=== PATIENT | male | born 1965 | race Caucasian/White ===

== ENCOUNTER 2016-06-27 11:06 | Inpatient (IN) | payer SELFPAY ==
[2016-06-27] VITALS (8 sets, daily range): BP systolic 117–137; BP diastolic 68–91; PULSE 77–98; RESP 15–18; TEMP 97.4–98.6; O2SAT 95–99
[~2016-06-27] VITALS: Ht 177.8 cm; Wt 107.0 kg
[~2016-06-27 11:06] MED LIST: CEPH500C3 PO; HYDR-3534 PO; IBUP800 PO; PERC5TAB12 PO
[2016-06-27] MEDS ORDERED: SODIUM CHLOR 0.9% 1000 ML INJ 1,000 ML IV SCH (11:23)
[2016-06-27] MEDS ORDERED: ONDANSETRON HCL 4 MG/2 ML VIAL IVP ONE (11:30)
[2016-06-27] MEDS ORDERED: SODIUM CHLOR 0.9% 1000 ML INJ 1,000 ML IV ONE (11:30)
[2016-06-27] MEDS ORDERED: KETOROLAC TROMETHAMINE 30 MG/ML (IVP) VIAL IV PUSH ONE (11:30)
[2016-06-27] MEDS ORDERED: SODIUM CHLORIDE 0.9% FLUSH 5 ML FLUSH IVF PRN (11:30)
[2016-06-27] MEDS ORDERED: MORPHINE SULFATE 4 MG/ML INJ IV PUSH ONE (11:30)
--- NOTE | 2016-06-27 11:30 | PD ---
HPI Chief Complaint: Flank/Kidney Pain Time Seen by Provider: 11:16 Travel History International Travel<30 days: No Contact w/Intl Traveler<30days: No Traveled to known affect area: No History of Present Illness HPI Patient is a 51-year-old male presents to the room with complaints of right sided flank pain. Patient reports that 3 weeks ago he began to feel intermittent pains to his right flank. Reports that over the past 3 weeks, his symptoms have progressed and worsened. Patient reports that symptoms were worse last night, reports that he has not been able to sleep with his symptoms. Reports that pain radiates to his groin. Patient reports that he has been feeling intermittent chills, denies fevers. Denies nausea or vomiting. Denies hematuria, urinary urgency, frequency or dysuria. Patient denies history of kidney stones in the past. PFSH Past Medical History Medical History: Denies Significant Hx Tetanus Vaccination: < 5 Years Influenza Vaccination: No Past Surgical History Surgical History: No Previous Surgery Social History Alcohol Use: Yes (drinks mult beers wednesday and wed) Tobacco Use: Yes (APPROX 2 PPD ) Substance Use: No Allergies-Medications (Allergen,Severity, Reaction): Coded Allergies: No Known Allergies (Verified , 06/27/16) Reported Meds & Prescriptions Reported Meds & Active Scripts Active No Active Prescriptions or Reported Medications Review of Systems General / Constitutional: No: Fever Eyes: No: Visual changes HENT: No: Headaches Cardiovascular: No: Chest Pain or Discomfort Respiratory: No: Shortness of Breath Gastrointestinal: Positive: Abdominal Pain, No: Nausea, Vomiting, Diarrhea Genitourinary: No: Urgency, Frequency, Dysuria, Nocturia, Hematuria Musculoskeletal: No: Pain Skin: No Rash Neurologic: No: Weakness Psychiatric: No: Depression Endocrine: No: Polydipsia Hematologic/Lymphatic: No: Easy Bruising Physical Exam Narrative GENERAL: Patient with mild distress SKIN: Warm and dry. HEAD: Atraumatic. Normocephalic. EYES: Pupils equal and round. No scleral icterus. No injection or drainage. ENT: No nasal bleeding or discharge. Mucous membranes pink and moist. NECK: Trachea midline. No JVD. CARDIOVASCULAR: Regular rate and rhythm. No murmur appreciated. RESPIRATORY: No accessory muscle use. Clear to auscultation. Breath sounds equal bilaterally. GASTROINTESTINAL: Abdomen soft, non-tender, nondistended. Patient with right- sided flank pain MUSCULOSKELETAL: No obvious deformities. No clubbing. No cyanosis. No edema. NEUROLOGICAL: Awake and alert. No obvious cranial nerve deficits. Motor grossly within normal limits. Normal speech. PSYCHIATRIC: Appropriate mood and affect; insight and judgment normal. Data Data Last Documented VS Vital Signs Date Time Temp Pulse Resp B/P Pulse Ox O2 Delivery O2 Flow Rate FiO2 06/27/16 12:25 85 18 124/82 99 Room Air 06/27/16 11:07 98.2 Orders Complete Blood Count With Diff (06/27/16 11:23) Comprehensive Metabolic Panel (06/27/16 11:23) Lipase (06/27/16 11:23) Prothrombin Time / Inr (Pt) (06/27/16 11:23) Act Partial Throm Time (Ptt) (06/27/16 11:23) Urinalysis - C+S If Indicated (06/27/16 11:23) Ct Abd/Pel W/O Iv Contrast (06/27/16 11:23) Morphine Inj (Morphine Inj) (06/27/16 11:30) Ondansetron Inj (Zofran Inj) (06/27/16 11:30) Sodium Chlor 0.9% 1000 Ml Inj (Ns 1000 M (06/27/16 11:23) Sodium Chloride 0.9% Flush (Ns Flush) (06/27/16 11:30) Sodium Chlor 0.9% 1000 Ml Inj (Ns 1000 M (06/27/16 11:30) Ketorolac Inj (Toradol Inj) (06/27/16 11:30) Piperacil-Tazo 3.375 Gm Premix (Zosyn 3. (06/27/16 12:15) Labs Laboratory Tests Test 06/27/16 11:25 White Blood Count 16.9 TH/MM3 Red Blood Count 4.82 MIL/MM3 Hemoglobin 16.1 GM/DL Hematocrit 46.1 % Mean Corpuscular Volume 95.5 FL Mean Corpuscular Hemoglobin 33.3 PG Mean Corpuscular Hemoglobin 34.9 % Concent Red Cell Distribution Width 14.2 % Platelet Count 243 TH/MM3 Mean Platelet Volume 7.3 FL Neutrophils (%) (Auto) 71.7 % Lymphocytes (%) (Auto) 17.6 % Monocytes (%) (Auto) 9.4 % Eosinophils (%) (Auto) 0.7 % Basophils (%) (Auto) 0.6 % Neutrophils # (Auto) 12.1 TH/MM3 Lymphocytes # (Auto) 3.0 TH/MM3 Monocytes # (Auto) 1.6 TH/MM3 Eosinophils # (Auto) 0.1 TH/MM3 Basophils # (Auto) 0.1 TH/MM3 CBC Comment DIFF FINAL Differential Comment Prothrombin Time 10.8 SEC Prothromb Time International 1.0 RATIO Ratio Activated Partial 32.2 SEC Thromboplast Time Sodium Level 139 MEQ/L Potassium Level 4.3 MEQ/L Chloride Level 106 MEQ/L Carbon Dioxide Level 25.4 MEQ/L Anion Gap 8 MEQ/L Blood Urea Nitrogen 11 MG/DL Creatinine 1.15 MG/DL Estimat Glomerular Filtration 68 ML/MIN Rate Random Glucose 102 MG/DL Calcium Level 8.8 MG/DL Total Bilirubin 0.7 MG/DL Aspartate Amino Transf 92 U/L (AST/SGOT) Alanine Aminotransferase 177 U/L (ALT/SGPT) Alkaline Phosphatase 89 U/L Total Protein 8.1 GM/DL Albumin 3.4 GM/DL Lipase 110 U/L MDM Medical Decision Making Medical Screen Exam Complete: Yes Emergency Medical Condition: Yes Interpretation(s) Vital Signs Date Time Temp Pulse Resp B/P Pulse Ox O2 Delivery O2 Flow Rate FiO2 06/27/16 11:20 88 18 125/78 98 Room Air 06/27/16 11:20 95 18 06/27/16 11:15 89 18 125/78 98 06/27/16 11:07 98.2 98 15 137/91 95 Last Impressions Abdomen/Pelvis CT 06/27/16 1123 Signed Impressions: Service Date/Time: Monday, June 27, 2016 11:44 - CONCLUSION: Acute appendicitis with findings characteristic of perforation and abscess formation. Nonobstructing left renal calculus. Diverticulosis. Natanael Crews MD Laboratory Tests Test 06/27/16 11:25 White Blood Count 16.9 TH/MM3 (4.0-11.0) Red Blood Count 4.82 MIL/MM3 (4.50-5.90) Hemoglobin 16.1 GM/DL (13.0-17.0) Hematocrit 46.1 % (39.0-51.0) Mean Corpuscular Volume 95.5 FL (80.0-100.0) Mean Corpuscular Hemoglobin 33.3 PG (27.0-34.0) Mean Corpuscular Hemoglobin 34.9 % Concent (32.0-36.0) Red Cell Distribution Width 14.2 % (11.6-17.2) Platelet Count 243 TH/MM3 (150-450) Mean Platelet Volume 7.3 FL (7.0-11.0) Neutrophils (%) (Auto) 71.7 % (16.0-70.0) Lymphocytes (%) (Auto) 17.6 % (9.0-44.0) Monocytes (%) (Auto) 9.4 % (0.0-8.0) Eosinophils (%) (Auto) 0.7 % (0.0-4.0) Basophils (%) (Auto) 0.6 % (0.0-2.0) Neutrophils # (Auto) 12.1 TH/MM3 (1.8-7.7) Lymphocytes # (Auto) 3.0 TH/MM3 (1.0-4.8) Monocytes # (Auto) 1.6 TH/MM3 (0-0.9) Eosinophils # (Auto) 0.1 TH/MM3 (0-0.4) Basophils # (Auto) 0.1 TH/MM3 (0-0.2) CBC Comment DIFF FINAL Differential Comment Prothrombin Time 10.8 SEC (9.8-11.6) Prothromb Time International 1.0 RATIO Ratio Activated Partial 32.2 SEC Thromboplast Time (24.3-30.1) Sodium Level 139 MEQ/L (136-145) Potassium Level 4.3 MEQ/L (3.5-5.1) Chloride Level 106 MEQ/L (98-107) Carbon Dioxide Level 25.4 MEQ/L (21.0-32.0) Anion Gap 8 MEQ/L (5-15) Blood Urea Nitrogen 11 MG/DL (7-18) Creatinine 1.15 MG/DL (0.60-1.30) Estimat Glomerular Filtration 68 ML/MIN (>89) Rate Random Glucose 102 MG/DL (74-106) Calcium Level 8.8 MG/DL (8.5-10.1) Total Bilirubin 0.7 MG/DL (0.2-1.0) Aspartate Amino Transf 92 U/L (15-37) (AST/SGOT) Alanine Aminotransferase 177 U/L (12-78) (ALT/SGPT) Alkaline Phosphatase 89 U/L (45-117) Total Protein 8.1 GM/DL (6.4-8.2) Albumin 3.4 GM/DL (3.4-5.0) Lipase 110 U/L (73-393) Differential Diagnosis Pyelonephritis, nephrolithiasis, cholecystitis, muscle skeletal pain Narrative Course 51-year-old male who presents to emergency room with complaints of right-sided flank pain. Patient reports that pain began 3 weeks ago and has been intermittent in nature. Patient reports that symptoms are progressing and getting worse, reports that pain now radiates to his right groin. Patient with no history of kidney stones in the past. Patient denies hematuria, dysuria, urgency or frequency. Patient with right-sided flank pain, patient with most likely a kidney stone versus pyelonephritis. Plan to obtain CAT scan of the abdomen pelvis without IV contrast for further evaluation of symptoms.. CBC, BMP, UA ordered to evaluate for renal function, infection. Plan to give patient IV fluids as well as pain medications and we'll reevaluate. pt with acute appy with perforation and abscess formation call made to Dr Ledezma - Dr. Ledezma request that pt be placed on medical service and to have IR consulted for drainage of abscess. He will see pt in consult but will not operate acutely with perforated appendix with abscess perforation Dr Ledezma evaluated pt in ER, plan for admission to medicine service and perc drain by IR, cont. antibiotics, plan for outpt appendectomy in a few weeks case reviewed with family practice resident who accepts pt to service Diagnosis Primary Impression: Acute appendicitis Qualified Code: K35.2 - Acute appendicitis with generalized peritonitis Admitting Information Admitting Physician Requests: Admit Scripts No Active Prescriptions or Reported Meds Colleen Romero DO Jun 27, 2016 11:30
[2016-06-27 11:35] LABS: AUTOMATED NEUTROPHIL # 12.1 TH/MM3 (1.8-7.7); BASOPHIL # 0.1 TH/MM3 (0-0.2); BASOPHIL % 0.6 % (0.0-2.0); EOSINOPHIL # 0.1 TH/MM3 (0-0.4); EOSINOPHIL % 0.7 % (0.0-4.0); HEMATOCRIT 46.1 % (39.0-51.0); HEMO FLAGS DIFF FINAL; LYMPH % 17.6 % (9.0-44.0); MEAN CELL VOLUME 95.5 FL (80.0-100.0); MEAN CORPUSCULAR HEMOGLOBIN 33.3 PG (27.0-34.0); MEAN CORPUSCULAR HGB CONC 34.9 % (32.0-36.0); MONO % 9.4 % (0.0-8.0); NEUT % 71.7 % (16.0-70.0); PLATELET COUNT 243 TH/MM3 (150-450); RED BLOOD COUNT 4.82 MIL/MM3 (4.50-5.90); RED CELL DISTRIBUTION WIDTH 14.2 % (11.6-17.2); WHITE BLOOD COUNT 16.9 TH/MM3 (4.0-11.0)
[2016-06-27 11:46] LABS: APTT (PATIENT) 32.2 SEC (24.3-30.1); PROTHROMBIN TIME - PATIENT 10.8 SEC (9.8-11.6)
[2016-06-27 11:53] LABS: ALT (GPT) 177 U/L (12-78); ANION GAP 8 MEQ/L (5-15); AST (GOT) 92 U/L (15-37); BICARBONATE 25.4 MEQ/L (21.0-32.0); BLOOD UREA NITROGEN 11 MG/DL (7-18); CHLORIDE 106 MEQ/L (98-107); GLOMERULAR FILTRATION RATE 68 ML/MIN (>89); POTASSIUM 4.3 MEQ/L (3.5-5.1); SODIUM (NA) 139 MEQ/L (136-145)
[2016-06-27 11:54] LABS: ALKALINE PHOSPHATASE 89 U/L (45-117); TOTAL BILIRUBIN ADULT 0.7 MG/DL (0.2-1.0)
--- NOTE | 2016-06-27 12:05 | RADRPT ---
EXAM DATE/TIME: 06/27/2016 11:44 [facility] COMPARISON: No previous studies available for comparison. INDICATIONS : Right flank pain. ORAL CONTRAST: No oral contrast ingested. RADIATION DOSE: 8.53 CTDIvol (mGy) MEDICAL HISTORY : None SURGICAL HISTORY : None. ENCOUNTER: Initial ACUITY: 1 day PAIN SCALE: 7/10 LOCATION: Right flank TECHNIQUE: Volumetric scanning of the abdomen and pelvis was performed. Using automated exposure control and ad justment of the mA and/or kV according to patient size, radiation dose was kept as low as reasonably achievable to obtain optimal diagnostic quality images. FINDINGS: Nonobstructing calculus left midpole kidney measuring 2 mm on image 56. Right kidney unremarkable. Sp amanda, pancreas, adrenal glands, visualized portions of the liver and gallbladder are unremarkable. Ur inary bladder unremarkable. Small fat containing left inguinal hernia also containing a loop of sigmo id colon. There is diverticulosis of the sigmoid colon and descending colon without evidence of diver ticulitis. Transverse and descending colonic diverticuli are also seen. The examination demonstrates a dilated fluid-filled appendix with adjacent inflammatory stranding and trace fluid. This terminates in a air and fluid collection measuring 4.8 x 3.6 cm in transverse and AP dimension. This collection abuts the descending colon where there is mild focal wall thickening present. Lung bases are clear. Osseous structures are intact with degenerative changes. CONCLUSION: Acute appendicitis with findings characteristic of perforation and abscess formation. Nonobstructing left renal calculus. Diverticulosis. Natanael Crews MD on June 27, 2016 at 12:00 Board Certified Radiologist. This report was verified electronically.
[2016-06-27] MEDS ORDERED: PIPERACIL-TAZO 3.375 GM PREMIX 50 ML IV ONE (12:15)
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
[2016-06-27] MEDS ORDERED: LORazepam 2 MG TAB PO PRN (14:15)
[2016-06-27] MEDS ORDERED: LORazepam 1 MG TAB PO PRN (14:15)
[2016-06-27] MEDS ORDERED: LORazepam 2 MG/ML VIAL IV PUSH PRN ×4 (14:15)
[2016-06-27] MEDS ORDERED: FLUMAZENIL 1 MG/10 ML VIAL IV PUSH PRN (14:15)
[2016-06-27] MEDS ORDERED: SODIUM CHLORIDE 0.9% FLUSH 5 ML FLUSH FLUSH PRN (14:15)
[2016-06-27] MEDS ORDERED: ACETAMINOPHEN 325 MG TAB PO PRN (14:15)
[2016-06-27] MEDS ORDERED: NALOXONE HCL 0.4 MG/ML AMP IV PRN (14:15)
[2016-06-27] MEDS ORDERED: ONDANSETRON HCL 4 MG/2 ML VIAL IVP PRN (14:15)
[2016-06-27] MEDS ORDERED: RESP: ALBUTEROL 2.5 MG/IPRATROPIUM 0.5 MG NEB (PRN) NEB (15:00)
[2016-06-27] MEDS ORDERED: hydrALAZINE HCL 10 MG TAB PO PRN (15:00)
--- NOTE | 2016-06-27 15:07 | RADRPT ---
EXAM DATE/TIME: 06/27/2016 14:50 [facility] COMPARISON: CT ABDOMEN & PELVIS W/O CONTRAST, June 27, 2016, 11:44. INDICATIONS : Patient has no chest complaints. MEDICAL HISTORY : None. SURGICAL HISTORY : None. ENCOUNTER: Initial ACUITY: 1 day PAIN SCORE: 0/10 LOCATION: chest FINDINGS: No infiltrate, effusion or pneumothorax demonstrated. Normal heart size. There is a calcified left queta ng granuloma. CONCLUSION: No evidence of acute cardiopulmonary disease. Kirby Brooks MD on June 27, 2016 at 15:05 Board Certified Radiologist. This report was verified electronically.
[2016-06-27 15:30] LABS: BLOOD, URINE TRACE (NEG); COMMENT (UR) CULT NOT INDICATED; CULTURE IF INDICATED CULT NOT INDICATED; GLUCOSE,URINE NEG (NEG); KETONE, URINE NEG (NEG); MUCUS URINE FEW /lpf (OCC); NITRITE,URINE NEG (NEG); URINE COLOR YELLOW (YELLW/STRAW)
[2016-06-27] MEDS: SODIUM CHLOR 0.9% 1000 ML INJ 1,000 ML IV SCH ×2 (15:33→22:19)
[2016-06-27] MEDS: PIPERACIL-TAZO 3.375 GM PREMIX 50 ML IV SCH (17:17)
[2016-06-27] MEDS ORDERED: LIDOCAINE 1%/EPINEPHrine 1:100,000 SOLN 20 ML VIAL ONE (18:08)
[2016-06-27] MEDS ORDERED: fentaNYL CITRATE 250 MCG/5 ML AMP ONE (20:12)
[2016-06-27] MEDS ORDERED: MIDAZOLAM HCL 5 MG/5 ML VIAL ONE (20:12)
--- NOTE | 2016-06-27 20:44 | PD.RAD ---
Post CT Procedure Prog Note Pre Procedure Diagnosis: (1) Acute appendicitis Post Procedure Diagnosis: (1) Acute appendicitis Procedure Date: Jun 27, 2016 Supervising Radiologist: Jeremias Coffey JR Proceduralist/Assist: RT Jamison(R)(CT) Anesthesia: Conscious Sedation Plan of Activity Patient to Unit: PACU Patient Condition: Good See PACS Report for procedural detail/treatment Drainage Procedure Procedure 1 Imaging Guidance: CT Side: Right Procedure Type: Abscess Drainage Procedure: Placement [place]: 8 Drainage: Suction Fluid Description: Purulent Findings: 20 ml pus obtained. Sample to maricruz Coffey Jr.,Jeremias Huntley MD Jun 27, 2016 20:44
--- NOTE | 2016-06-27 20:58 | MB ---
cc: SHADY SPICER M.D. DATE OF CONSULTATION 06/27/16 REASON FOR CONSULTATION Perforated appendicitis. HISTORY OF PRESENT ILLNESS The patient is a 51-year-old male with a 3-week history of pain in the right lateral abdomen and right flank. This became progressively severe until today when he was seen in the emergency department. The patient underwent CT scan which demonstrates findings consistent with perforated appendicitis. The patient reports that he does not see a doctor and has no other medical problems. REVIEW OF SYSTEMS Review of systems however is positive for constitutional symptoms of fever and weight loss of 20 pounds over the last month and some chills. The patient has polyuria at night. He complains of intermittent blurred vision. RESPIRATORY: Complains of some shortness of breath with ambulation but denies sputum production or hemoptysis. CARDIOVASCULAR: He denies chest pain or lower extremity edema. GI: He complains of abdominal pain on the right side. Denies any change in bowel habits. : Significant of urinary frequency. No problems with dysuria. MUSCULOSKELETAL: He denies any muscle aches or limitation of motion. NEUROLOGIC: Denies headache or dizziness. PSYCHIATRIC: He complains of some anxiety. FAMILY HISTORY AND SOCIAL HISTORY The patient has a probable history of hepatitis C, possible history of pneumonia. PAST SURGERIES Sutures in the right arm in December of this year. MEDICATIONS He uses no medications regularly. ALLERGIES He has no known allergies. SOCIAL HISTORY The patient smokes two packs a day for 35 years. He binge drinks many days, but there are other days when he does not drink anything. 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 PHYSICAL EXAMINATION GENERAL: A male in no acute distress. VITAL SIGNS: BP 137/91, pulse 98, respirations 15, 95% saturation on room air 98, temperature 98.2 HEENT: Sclerae anicteric. Pupils reactive. NECK: Supple. CHEST: Clear to auscultation. CARDIAC: Regular rate and rhythm. ABDOMEN: Soft with tenderness in the right lateral abdomen and flank. There is no pain in the right lower quadrant near McBurney point. There are no hernias noted. Pulses are present. NEUROLOGIC: Cranial nerves II-XII grossly intact. Sensory motor exam is grossly intact. LABORATORY DATA WBCs of 16.9, platelets are 243,000. Chemistries demonstrate elevated AST and ALT of 92 AND 177, alkaline phosphatase and total bilirubin are normal. Coags are normal with INR of 1.0 and PT of 10.8. IMAGING STUDIES CT scan demonstrates a nonobstructing calculus in the left kidney and the right kidney is unremarkable. There is some diverticulosis in the sigmoid and descending colon without diverticulitis. There is a dilated fluid filled appendix with adjacent inflammatory stranding and a trace of fluid. There is an area of fluid collection that is 4.8 x 3.6 cm in dimension. This is consistent with perforation and abscess formation. ASSESSMENT Patient with medical problems including hepatitis C, chronic tobacco use, anxiety and appendiceal abscess. The patient has been seen in the emergency department and I have recommended that he have his hepatitis C worked up while he is in the hospital and potentially consider treatment. I have also recommended that the patient be started on antibiotics and undergo drainage via interventional radiology. I have discussed with the patient and his that there is a small but low risk of malignancy causing this problem and that after he is drained he should consider undergoing interval appendectomy. If the patient fails to improve over the next 48-72 hours, he may require surgical procedure during this hospitalization. I have discussed with him and the significant risk of requiring bowel resection and developing wound infection if it is performed during this hospitalization but if there is no choice we will proceed. The patient vocalizes clear understanding of this. Thank you for asking us to see this individual. We will follow with you. MD SULLY Youngblood/ /7:50 PM /8:44 PM
[2016-06-27] MEDS: SODIUM CHLORIDE 0.9% FLUSH 5 ML FLUSH FLUSH SCH (22:19)
[2016-06-28] MEDS: PIPERACIL-TAZO 3.375 GM PREMIX 50 ML IV SCH ×3 (00:14→10:41)
[2016-06-28] MEDS: SODIUM CHLOR 0.9% 1000 ML INJ 1,000 ML IV SCH ×2 (00:14→08:30)
[2016-06-28 06:59] LABS: ALT (GPT) 131 U/L (12-78); ANION GAP 9 MEQ/L (5-15); AST (GOT) 64 U/L (15-37); BICARBONATE 22.3 MEQ/L (21.0-32.0); BLOOD UREA NITROGEN 12 MG/DL (7-18); CHLORIDE 110 MEQ/L (98-107); GLOMERULAR FILTRATION RATE 73 ML/MIN (>89); SODIUM (NA) 141 MEQ/L (136-145)
[2016-06-28 07:03] LABS: ALKALINE PHOSPHATASE 80 U/L (45-117); HDL CHOLESTEROL 24.8 MG/DL (40.0-60.0); LDL CHOLESTEROL 129 MG/DL (0-99); TOTAL BILIRUBIN ADULT 0.4 MG/DL (0.2-1.0)
[2016-06-28 07:04] LABS: HEMATOCRIT 40.6 % (39.0-51.0); MEAN CORPUSCULAR HEMOGLOBIN 32.9 PG (27.0-34.0); MEAN CORPUSCULAR HGB CONC 33.9 % (32.0-36.0); PLATELET COUNT 214 TH/MM3 (150-450); RED BLOOD COUNT 4.18 MIL/MM3 (4.50-5.90); RED CELL DISTRIBUTION WIDTH 14.1 % (11.6-17.2); WHITE BLOOD COUNT 10.8 TH/MM3 (4.0-11.0)
[2016-06-28 07:54] LABS: HEMO FLAGS AUTO DIFF
[2016-06-28 08:00] VITALS: BP 109/77; PULSE 72; RESP 16; TEMP 98; O2SAT 93
[2016-06-28] MEDS: SODIUM CHLORIDE 0.9% FLUSH 5 ML FLUSH FLUSH SCH (09:00)
--- NOTE | 2016-06-28 09:41 | HHI.PR ---
Subjective Subjective Notes pain controlled, no new c/o Objective Vitals/I&O Vital Signs Date Time Temp Pulse Resp B/P Pulse Ox O2 Delivery O2 Flow Rate FiO2 06/28/16 08:00 98.0 72 16 109/77 93 06/27/16 22:00 Room Air Labs Laboratory Tests Test 06/27/16 06/27/16 06/28/16 11:25 15:00 05:54 White Blood Count 16.9 10.8 Red Blood Count 4.82 4.18 Hemoglobin 16.1 13.8 Hematocrit 46.1 40.6 Mean Corpuscular Volume 95.5 97.0 Mean Corpuscular Hemoglobin 33.3 32.9 Mean Corpuscular Hemoglobin 34.9 33.9 Concent Red Cell Distribution Width 14.2 14.1 Platelet Count 243 214 Mean Platelet Volume 7.3 8.0 Neutrophils (%) (Auto) 71.7 Lymphocytes (%) (Auto) 17.6 Monocytes (%) (Auto) 9.4 Eosinophils (%) (Auto) 0.7 Basophils (%) (Auto) 0.6 Neutrophils # (Auto) 12.1 Lymphocytes # (Auto) 3.0 Monocytes # (Auto) 1.6 Eosinophils # (Auto) 0.1 Basophils # (Auto) 0.1 CBC Comment DIFF FINAL AUTO DIFF Differential Comment Prothrombin Time 10.8 Prothromb Time International 1.0 Ratio Activated Partial 32.2 Thromboplast Time Sodium Level 139 141 Potassium Level 4.3 4.0 Chloride Level 106 110 Carbon Dioxide Level 25.4 22.3 Anion Gap 8 9 Blood Urea Nitrogen 11 12 Creatinine 1.15 1.07 Estimat Glomerular Filtration 68 73 Rate Random Glucose 102 124 Calcium Level 8.8 8.1 Total Bilirubin 0.7 0.4 Aspartate Amino Transf 92 64 (AST/SGOT) Alanine Aminotransferase 177 131 (ALT/SGPT) Alkaline Phosphatase 89 80 Total Protein 8.1 6.8 Albumin 3.4 2.8 Lipase 110 Urine Color YELLOW Urine Turbidity CLEAR Urine pH 6.0 Urine Specific Dewart 1.012 Urine Protein NEG Urine Glucose (UA) NEG Urine Ketones NEG Urine Occult Blood TRACE Urine Nitrite NEG Urine Bilirubin NEG Urine Urobilinogen LESS THAN 2.0 Urine Leukocyte Esterase NEG Urine RBC 2 Urine WBC LESS THAN 1 Urine Mucus FEW Microscopic Urinalysis Comment CULT NOT INDICATED Lactic Acid Level 0.8 Triglycerides Level 132 Cholesterol Level 180 LDL Cholesterol 129 HDL Cholesterol 24.8 Cholesterol/HDL Ratio 7.25 Date/Time Procedure Status Source Growth 06/28/16 06:13 Aerobic Blood Culture Received Blood Peripheral Pending 06/28/16 06:13 Anaerobic Blood Culture Received Blood Peripheral Pending 06/27/16 20:40 Gram Stain - Final Resulted Abscess Appendix 06/27/16 20:40 Wound Culture Resulted Abscess Appendix Pending 06/27/16 20:40 Acid Fast Stain Received Abscess Appendix Pending 06/27/16 20:40 Mycobacterial Culture Received Abscess Appendix Pending Cardiovascular: Regular Lungs: Clear Abdomen: Non-distended Extremities: No edema Narrative Exam IR drain in place A/P Assessment and Plan 51yo male s/p IR drainage of IAA 2/2 appendicitis, doing well. - WBC nml - AF, VSS - tolerating PO well - wants to go home - DC home today if AF, f/u with Dr. Ledezma in 1 week for drain removal Shiva Crockett MD Jun 28, 2016 09:41
[2016-06-28 10:23] LABS: BANDS 10 % (0-6); EOSINOPHILS 2 % (0-4); NEUTROPHIL # MANUAL DIFF 8.1 TH/MM3 (1.8-7.7); PLATELET ESTIMATE SMEAR NORMAL (NORMAL); PLATELET MORPHOLOGY NORMAL (NORMAL); POLYS (SEG NEUTROPHILS) 65 % (16-70); WBC DIFF SAMPLE 100
[2016-06-28 10:24] LABS: SCAN/DIFF FINAL DIFF MANUAL
[2016-06-28 12:00] VITALS: BP 115/67; PULSE 78; RESP 17; TEMP 97.1; O2SAT 95
--- NOTE | 2016-06-28 13:11 | HHI.FPPN ---
Subjective Subjective Patient seen and examined with the resident team this morning. Case reviewed and discussed. Please refer to resident H&P for further details regarding history of present illness, ROS, past medical and surgical history, family and social history. In summary, patient is a 51-year-old male that presented to the emergency room with right flank pain and was found to have ruptured appendicitis with intra- abdominal abscess. General surgery has been consulted and interventional radiology placed a percutaneous drain. Cultures are currently pending Patient is seen in his hospital room this morning with his at his bedside, reporting he is feeling much better. He would like to go home to smoke. He has been afebrile overnight [facility] Objective Objective Last Impressions Chest X-Ray 06/27/16 1414 Signed Impressions: Service Date/Time: Monday, June 27, 2016 14:50 - CONCLUSION: No evidence of acute cardiopulmonary disease. Kirby Brooks MD Abdomen/Pelvis CT 06/27/16 1123 Signed Impressions: Service Date/Time: Monday, June 27, 2016 11:44 - CONCLUSION: Acute appendicitis with findings characteristic of perforation and abscess formation. Nonobstructing left renal calculus. Diverticulosis. Naatnael Crews MD Laboratory Tests - Abnormals Test 06/27/16 06/28/16 15:00 05:54 Urine Occult Blood TRACE Urine Mucus FEW /lpf Red Blood Count 4.18 MIL/MM3 Band Neutrophils % 10 % Neutrophils # (Manual) 8.1 TH/MM3 Chloride Level 110 MEQ/L Estimat Glomerular Filtration 73 ML/MIN Rate Random Glucose 124 MG/DL Calcium Level 8.1 MG/DL Aspartate Amino Transf 64 U/L (AST/SGOT) Alanine Aminotransferase 131 U/L (ALT/SGPT) Albumin 2.8 GM/DL LDL Cholesterol 129 MG/DL HDL Cholesterol 24.8 MG/DL Vital Signs 06/27/16 06/27/16 06/27/16 06/27/16 14:00 16:00 21:09 21:15 Temp 97.4 98.5 Pulse 84 77 88 85 Resp B/P 128/88 117/75 115/71 123/78 Pulse Ox 98 96 97 96 O2 Delivery Room Air Room Air Room Air 06/27/16 06/27/16 06/27/16 06/27/16 21:30 21:45 22:00 22:16 Temp 98.8 97.7 Pulse 80 83 87 92 Resp B/P 120/75 116/73 112/76 123/68 Pulse Ox 95 94 95 96 O2 Delivery Room Air Room Air Room Air 06/27/16 06/28/16 06/28/16 23:45 08:00 12:00 Temp 98.6 98.0 97.1 Pulse 96 72 78 Resp B/P 132/69 109/77 115/67 Pulse Ox 96 93 95 INTAKE & OUTPUT 06/28/16 07:00 Intake Total 2051 ml Output Total 1635 ml Balance 416 ml Physical exam GENERAL: Obese male, well-developed and well-nourished, sitting up in the chair. Smell strongly of smoke SKIN: Warm and dry. No rashes HEAD: Normocephalic. Atraumatic EYES: No scleral icterus. No injection or drainage. ENT: OP clear. MMM. NECK: Supple, trachea midline. No JVD or lymphadenopathy. CARDIOVASCULAR: Regular rate and rhythm without murmurs, gallops, or rubs. RESPIRATORY: Breath sounds equal and clear to auscultation bilaterally. No accessory muscle use. GASTROINTESTINAL: Abdomen soft, non-tender, nondistended. Obese. There is a percutaneous drain with minimal drainage. No rebound MUSCULOSKELETAL: No cyanosis, or edema. No calf tenderness BACK: Nontender without obvious deformity. No CVA tenderness. Neuro: Awake and alert. Normal speech. Cranial nerves grossly intact. Assessment Assessment 51-year-old male admitted with: Sepsis Acute perforated appendicitis Intra-abdominal abscess Leukocytosis Tachycardia Tobacco dependence Transaminitis History of IV drug use and hepatitis C PLAN PLAN Pain control Follow cultures Empiric antibiotic therapy Hepatitis profile Right upper quadrant ultrasound to evaluate liver/ transaminitis Trend CMP and CBC Counseled on smoking cessation Patient seen and examined. Case reviewed and discussed. Agree with plan of care as discussed with me and documented in the resident note. Erica Saenz MD Jun 28, 2016 13:11
--- NOTE | 2016-06-28 13:22 | HHI.DCPOC ---
Discharge Care Plan Diagnosis: (1) Acute appendicitis Goals to Promote Your Health * To prevent worsening of your condition and complications * To maintain your health at the optimal level Directions to Meet Your Goals Take your medications as prescribed Follow your dietary instruction Follow activity as directed Keep your appointments as scheduled Take your immunizations and boosters as scheduled If your symptoms worsen call your PCP, if no PCP go to Urgent Care Center or Emergency Room Smoking is Dangerous to Your Health. Avoid second hand smoke Call the 24-hour hour crisis hotline for domestic abuse at Vargas Reid MD R1 Jun 28, 2016 13:22
[2016-06-28] MEDS ORDERED: METR500T10 PO (14:01)
[2016-06-28] MEDS ORDERED: NORC5TAB PO (14:01)
[2016-06-28] MEDS ORDERED: CIPR500T2 PO (14:01)
--- NOTE | 2016-06-28 20:51 | RADRPT ---
EXAM DATE/TIME: 06/27/2016 20:19 [facility] COMPARISON: No previous studies available for comparison. INDICATIONS : Appendix abscess. SEDATION TIME: 30 minutes MEDICATION(S): 1.) 5 mg midazolam (Versed) IV 2.) 250 mcg fentanyl (Sublimaze) IV DEVICE(S): 1.) 8 Fr Skater 2.) 18 Fr Palacios blunt needle 3.) Clancy Total volume of 20 cc of pus fluid was removed. Fluid was sent for laboratory ordered studies. MEDICAL HISTORY : Renal calculi. SURGICAL HISTORY : None. ENCOUNTER: Initial ACUITY: 1 day PAIN SCORE: 0/10 LOCATION: Right lower quadrant PROCEDURE: 1.) Conscious sedation with continuous EKG and oximetry monitoring. 2.) EKG and oximetry remained stable throughout the procedure. PROCEDURE : 1. CT guided drainage of the right lower quadrant abscess 2. Conscious sedation with continuous EKG and oximetry monitoring. The risks, benefits and alternatives to the procedure were explained and verbal and written consent w as obtained. The site was prepped in sterile fashion. Full sterile technique was used, including ca p, mask, sterile gloves and gown and a large sterile sheet. Hand hygiene and 2% chlorhexidine and/or betadine/alcohol prep was utilized per protocol for cutaneous antisepsis. The skin and subcutaneous tissues were infiltrated with local anesthetic solution. Using CT guidance the prescribed site was localized. Drainage was performed using the prescribed cat heter The patient tolerated the procedure well and there were no complications. Conscious sedation was per formed with the prescribed dosages and duration as above. The patient tolerated the procedure well an d there were no complications. EKG and oximetry remained stable throughout the procedure. The patient was sent to post anesthesia recovery in stable condition. CONCLUSION: Uncomplicated CT guided drainage. Jeremias Coffey Jr., MD on June 28, 2016 at 20:49 Board Certified Radiologist. This report was verified electronically.
[2016-07-02 09:55] LABS: HCV RNA PCR LOGIU/ML 5.87 (())
[2016-07-30] MEDS ORDERED: HYDR-3288 PO (15:31)
== END 2016-06-28 15:00 | disposition home or self-care (01) | DRG 871 ==
LOC: NEPA 11:06 → NEDA 13:31 → N07B 15:20
PROVIDERS: ADMIT Family Medicine; ATTEND Family Medicine
PROC: 0D9J3ZZ Drainage of Appendix, Percutaneous Approach (ICD-10-PCS; principal; 2016-06-27)
DX: A41.9 Sepsis, unspecified organism (principal); K35.3 Acute appendicitis with localized peritonitis; B19.20 Unspecified viral hepatitis C without hepatic coma; F17.210 Nicotine dependence, cigarettes, uncomplicated; Z87.898 Personal history of other specified conditions
CPT/HCPCS: 71010; 74176; 75989; 80053; 80061; 80074; 81001; 83605; 83690; 85007; 85025; 85027; 85610; 85730; 86703; 87015; 87040; 87070; 87077; 87116; 87186; 87205; 87206; 87522; 87902; 96361; 96365; 96375; C1729; C1769; J1885; J2250; J2270; J2405; J2543; J3010; J7030

== ENCOUNTER → 2016-07-30 | Day surgery (SDC) | payer SELFPAY ==
[~2016-07-30] VITALS: Ht 177.8 cm; Wt 109.8 kg
[~2016-07-30] MED LIST changes: +ACETAMINOPHEN 1000 MG/100 ML VIAL IV SCH; +ACETAMINOPHEN/HYDROcodone 325 MG/7.5 MG TAB PO PRN; +BUPIVACAINE/EPINEPHRINE 0.25% PF 30 ML VIAL ONE; -CEPH500C3 PO; +CIPR500T2 PO; +DO NOT ADM ANY ANTICOAGULANT DRUGS XX PRN; +FAMOTIDINE 20 MG/2 ML VIAL ONE; +HYDR-3288 PO; -HYDR-3534 PO; -IBUP800 PO; +INSULIN HUMAN REGULAR 1,000 UNITS/10 ML VIAL SQ PRN; +KETOROLAC TROMETHAMINE 60 MG/2 ML (IM) VIAL IM ONE; +LACTATED RINGER'S 1000 ML INJ 1,000 ML IV ONE; +LACTATED RINGER'S 1000 ML IV SCH; +METOPROLOL TARTRATE 25 MG TAB PO PRN; +METR500T10 PO; +MIDAZOLAM HCL 2 MG/2 ML VIAL ONE; +MORPHINE SULFATE 4 MG/ML INJ IV PRN; +NEOSTIGMINE 3 MG/3 ML SYR IV ONE; +NORC5TAB PO; +ONDANSETRON HCL 4 MG/2 ML VIAL IV PRN; +ONDANSETRON HCL 4 MG/2 ML VIAL IV PUSH ONE; -PERC5TAB12 PO; +PROPOFOL 200 MG/20 ML AMP IV ONE; +SODIUM CHLORID 0.9% 500 ML IV SCH; +VANCOMYCIN HCL 1000 MG ON-CALL/NS 250 ML IV SCH; +ceFAZolin 1,000 MG/NS 100 ML IV SCH; +fentaNYL CITRATE 250 MCG/5 ML AMP ONE; +metroNIDAZOLE 500 MG INJ 100 ML IV ONE
[2016-07-30 11:48] VITALS: BP 132/87; PULSE 91; RESP 18; TEMP 98.6; O2SAT 97
[2016-07-30 12:43] LABS: AUTOMATED NEUTROPHIL # 4.6 TH/MM3 (1.8-7.7); BASOPHIL # 0.1 TH/MM3 (0-0.2); BASOPHIL % 1.3 % (0.0-2.0); EOSINOPHIL # 0.2 TH/MM3 (0-0.4); EOSINOPHIL % 1.9 % (0.0-4.0); HEMO FLAGS DIFF FINAL; LYMPH % 35.9 % (9.0-44.0); LYMPHOCYTE # 3.1 TH/MM3 (1.0-4.8); MEAN CELL VOLUME 95.2 FL (80.0-100.0); MEAN CORPUSCULAR HEMOGLOBIN 33.1 PG (27.0-34.0); MEAN CORPUSCULAR HGB CONC 34.7 % (32.0-36.0); MONO % 7.2 % (0.0-8.0); NEUT % 53.7 % (16.0-70.0); PLATELET COUNT 197 TH/MM3 (150-450); RED BLOOD COUNT 4.83 MIL/MM3 (4.50-5.90); RED CELL DISTRIBUTION WIDTH 14.6 % (11.6-17.2); WHITE BLOOD COUNT 8.7 TH/MM3 (4.0-11.0)
[2016-07-30 12:55] LABS: BICARBONATE 27.4 MEQ/L (21.0-32.0); POTASSIUM 4.1 MEQ/L (3.5-5.1)
[2016-07-30 16:35] VITALS: BP 123/74; PULSE 73; RESP 16; TEMP 97.8; O2SAT 96
--- NOTE | 2016-07-31 06:44 | EKG ---
Date Performed: 07/30/2016 Time Performed: 12:01:08 PTAGE: 51 years EKG: Sinus rhythm NORMAL ECG NO PREVIOUS TRACING DOCTOR: Les Quinn Interpretating Date/Time 07/31/2016 06:42:11
--- NOTE | 2016-08-11 07:40 | MP ---
cc: SHADY SPICER M.D. DATE OF SURGERY 07/30/2016 PROCEDURE Laparoscopic appendectomy. PREOPERATIVE DIAGNOSIS Previously perforated appendicitis with abscess. POSTOPERATIVE DIAGNOSIS Previously perforated appendicitis with abscess. ANESTHESIA General endotracheal. SURGEON MD [place] [employer] RAJIV Kevin ESTIMATED BLOOD LOSS 30 mL. FLUIDS 1000 mL crystalloid. COMPLICATIONS None. DRAINS None. SPECIMEN Appendix to pathology. NOTE The BLOCKMASON was required for all technical aspects of the procedure. She was present from the beginning through the end of the case and assisted on all aspects of the procedure. She was necessary for surgical preparation, exposure and to facilitate resection of the tissue and closure. PROCEDURE The patient was taken to the operating room and placed on the operating table in the supine position. After an adequate level of general endotracheal anesthesia was achieved, the abdomen and groin were prepped and draped in usual fashion. Time-out was taken confirming the correct patient, site and procedure to be performed. The skin and subcutaneous tissue was infiltrated with local anesthetic and incision made in the umbilicus and carried through the fascia sharply. The peritoneal cavity was directly visualized. A 12-mm balloon trocar was then inserted and the balloon inflated. The abdomen was insufflated and the patient placed in Trendelenburg position. Two 5-mm trocars were then placed with the first in the right lower quadrant and the second in the suprapubic region. Both entered the abdominal cavity under direct vision uneventfully. In this patient, the cecum was located at approximately the left midabdomen and not in the left lower quadrant. The cecum was rotated medially and the appendix, which was adhered to the surrounding tissues, was gently bluntly dissected free. When this had been accomplished, the mesoappendix was able to be divided and exposure was able to be accomplished down to the base of the appendix. The appendix was then ligated at the base with a 0-PDS Endoloop. The appendix was divided 1 cm distal to this with the harmonic scalpel. The base of the appendix appeared to be quite pliable and was not involved with the inflammatory process. No abscess whatsoever remained behind and after removing the appendix from the surrounding tissue, it was placed into an EndoCatch device and removed via the umbilical port while observing via the right lower quadrant 5-mm trocar site. The specimen was passed off the table. The right midabdomen was revisualized and the surface area was irrigated. No bleeding was noted from the area and, as this was now clean and there was no evidence of abscess, insufflation was then discontinued. The 5-mm trocars were removed under direct vision. No bleeding was noted from the trocar sites during desufflation. The laparoscope and umbilical port were then removed. The fascia was closed in the umbilicus with 0 Vicryl suture in a [id number] and simple interrupted fashion. The remaining local anesthetic was injected into the trocar sites and the skin was closed at each of the trocar sites with 4-0 Vicryl in an interrupted buried fashion. The skin was closed with Steri-Strips. The patient was extubated and taken back to the recovery room in stable condition. Sponge and needle counts were reported be correct. MD SULLY Youngblood/SSB /9:13 AM /7:34 AM
== END | disposition home or self-care (01) ==
LOC: HSDC 11:00
PROVIDERS: ATTEND Surgery Trauma Surgery
DX: K35.2 Acute appendicitis with generalized peritonitis (principal); Z01.810 Encounter for preprocedural cardiovascular examination
CPT/HCPCS: 00840; 44970; 80048; 85025; 88304; 93005; J0131; J0690; J1885; J2250; J2405; J2710; J3010; J3370; J7050; J7120

== ENCOUNTER 2017-04-28 15:30 | Emergency (ER) | payer SELFPAY ==
[~2017-04-28] VITALS: Ht 177.8 cm; Wt 109.0 kg
[~2017-04-28 15:30] MED LIST changes: -ACETAMINOPHEN 1000 MG/100 ML VIAL IV SCH; -ACETAMINOPHEN/HYDROcodone 325 MG/7.5 MG TAB PO PRN; -BUPIVACAINE/EPINEPHRINE 0.25% PF 30 ML VIAL ONE; -CIPR500T2 PO; -DO NOT ADM ANY ANTICOAGULANT DRUGS XX PRN; -FAMOTIDINE 20 MG/2 ML VIAL ONE; -INSULIN HUMAN REGULAR 1,000 UNITS/10 ML VIAL SQ PRN; -KETOROLAC TROMETHAMINE 60 MG/2 ML (IM) VIAL IM ONE; -LACTATED RINGER'S 1000 ML INJ 1,000 ML IV ONE; -LACTATED RINGER'S 1000 ML IV SCH; -METOPROLOL TARTRATE 25 MG TAB PO PRN; -METR500T10 PO; -MIDAZOLAM HCL 2 MG/2 ML VIAL ONE; -MORPHINE SULFATE 4 MG/ML INJ IV PRN; -NEOSTIGMINE 3 MG/3 ML SYR IV ONE; -ONDANSETRON HCL 4 MG/2 ML VIAL IV PRN; -ONDANSETRON HCL 4 MG/2 ML VIAL IV PUSH ONE; -PROPOFOL 200 MG/20 ML AMP IV ONE; -SODIUM CHLORID 0.9% 500 ML IV SCH; -VANCOMYCIN HCL 1000 MG ON-CALL/NS 250 ML IV SCH; -ceFAZolin 1,000 MG/NS 100 ML IV SCH; -fentaNYL CITRATE 250 MCG/5 ML AMP ONE; -metroNIDAZOLE 500 MG INJ 100 ML IV ONE
[2017-04-28 15:31] VITALS: BP 170/89; PULSE 108; RESP 20; TEMP 98.3; O2SAT 96
[2017-04-28 16:27] LABS: AUTOMATED NEUTROPHIL # 4.1 TH/MM3 (1.8-7.7); BASOPHIL # 0.1 TH/MM3 (0-0.2); BASOPHIL % 1.1 % (0.0-2.0); EOSINOPHIL # 0.2 TH/MM3 (0-0.4); EOSINOPHIL % 2.4 % (0.0-4.0); HEMATOCRIT 48.7 % (39.0-51.0); HEMO FLAGS DIFF FINAL; LYMPH % 44.4 % (9.0-44.0); LYMPHOCYTE # 4.1 TH/MM3 (1.0-4.8); MEAN CORPUSCULAR HEMOGLOBIN 34.4 PG (27.0-34.0); MEAN CORPUSCULAR HGB CONC 34.8 % (32.0-36.0); MONO % 7.5 % (0.0-8.0); NEUT % 44.6 % (16.0-70.0); PLATELET COUNT 226 TH/MM3 (150-450); RED BLOOD COUNT 4.92 MIL/MM3 (4.50-5.90); RED CELL DISTRIBUTION WIDTH 14.2 % (11.6-17.2); WHITE BLOOD COUNT 9.3 TH/MM3 (4.0-11.0)
[2017-04-28 16:50] LABS: BICARBONATE 22.7 MEQ/L (21.0-32.0)
--- NOTE | 2017-04-28 16:51 | PD ---
HPI Chief Complaint: Depression Time Seen by Provider: 16:27 Travel History International Travel<30 days: No Contact w/Intl Traveler<30days: No Traveled to known affect area: No History of Present Illness HPI 52-year-old male presents to the emergency department for evaluation for evaluation of depression, anxiety, "not feeling right in the head". Patient states he has had a lot of life-changing events the past 2 months. He reports his leaving him, losing his truck, losing his job. He states that he had to turn in his apartment [place] this morning and gave way all his belongings. When asked where he will be living, he states "my first has offered me to live on her front porch". Patient denies any suicidal or homicidal ideation but states that he is tired and overwhelmed. The patient states that he has been taking more alcohol than usual. Patient also states that he has been smoking cocaine, last use last night. Patient reports no chronic medical problems and takes no prescribed medications. He denies any medical complaints at this time. PFSH Past Medical History Cancer: No Cardiovascular Problems: No Diabetes: No Endocrine: No Genitourinary: No Hepatitis: Yes (HEP C) Hiatal Hernia: No Immune Disorder: No Kidney Stones: Yes (NEW LEFT KIDNEY STONE 06/27/16) Musculoskeletal: Yes (BROKE RIGHT ARM 12/2015) Neurologic: No Psychiatric: No Reproductive: No Respiratory: Yes (PNEUMONIA) Thyroid Disease: No Past Surgical History Abdominal Surgery: No AICD: No Cardiac Surgery: No Ear Surgery: No Endocrine Surgery: No Eye Surgery: No Genitourinary Surgery: No Gynecologic Surgery: No Joint Replacement: No Oral Surgery: No Pacemaker: No Thoracic Surgery: No Social History Alcohol Use: Yes (drinks mult beers wednesday and wed) Tobacco Use: Yes (APPROX 2 PPD ) Substance Use: No Allergies-Medications (Allergen,Severity, Reaction): Coded Allergies: *MDRO Multi-Drug Resistant Organism (Verified Adverse Reaction, Unknown, MRSA, 04/28/17) MRSA (abdomen) - 02/20/04 Reported Meds & Prescriptions Reported Meds & Active Scripts Active No Active Prescriptions or Reported Medications Review of Systems Except as stated in HPI: all other systems reviewed are Neg Physical Exam Narrative GENERAL: Well-nourished, well-developed male patient, ambulatory. Afebrile SKIN: Focused skin assessment warm/dry. HEAD: Normocephalic. Atraumatic EYES: No scleral icterus. No injection or drainage. NECK: Supple, trachea midline. No JVD or lymphadenopathy. CARDIOVASCULAR: Regular rate and rhythm without murmurs, gallops, or rubs. RESPIRATORY: Breath sounds equal bilaterally. No accessory muscle use. Lungs sounds are clear to auscultation. GASTROINTESTINAL: Abdomen soft, non-tender, nondistended. MUSCULOSKELETAL: No cyanosis, or edema. PSYCHIATRIC: No delusional thought processes. No hallucinations. Data Data Last Documented VS Vital Signs Date Time Temp Pulse Resp B/P (MAP) Pulse Ox O2 Delivery O2 Flow Rate FiO2 04/28/17 16:50 89 17 04/28/17 15:31 98.3 170/89 (116) 96 Room Air Orders Orders Complete Blood Count With Diff (04/28/17 15:50) Basic Metabolic Panel (Bmp) (04/28/17 15:50) Psych Screen (04/28/17 15:50) Drug Screen, Random Urine (04/28/17 15:50) Alcohol (Ethanol) (04/28/17 15:50) Labs Laboratory Tests Test 04/28/17 16:10 White Blood Count 9.3 TH/MM3 Red Blood Count 4.92 MIL/MM3 Hemoglobin 16.9 GM/DL Hematocrit 48.7 % Mean Corpuscular Volume 99.0 FL Mean Corpuscular Hemoglobin 34.4 PG Mean Corpuscular Hemoglobin Concent 34.8 % Red Cell Distribution Width 14.2 % Platelet Count 226 TH/MM3 Mean Platelet Volume 7.1 FL Neutrophils (%) (Auto) 44.6 % Lymphocytes (%) (Auto) 44.4 % Monocytes (%) (Auto) 7.5 % Eosinophils (%) (Auto) 2.4 % Basophils (%) (Auto) 1.1 % Neutrophils # (Auto) 4.1 TH/MM3 Lymphocytes # (Auto) 4.1 TH/MM3 Monocytes # (Auto) 0.7 TH/MM3 Eosinophils # (Auto) 0.2 TH/MM3 Basophils # (Auto) 0.1 TH/MM3 CBC Comment DIFF FINAL Differential Comment Blood Urea Nitrogen 10 MG/DL Creatinine 1.17 MG/DL Random Glucose 71 MG/DL Calcium Level 8.8 MG/DL Sodium Level 139 MEQ/L Potassium Level 4.0 MEQ/L Chloride Level 107 MEQ/L Carbon Dioxide Level 22.7 MEQ/L Anion Gap 9 MEQ/L Estimat Glomerular Filtration Rate 66 ML/MIN Ethyl Alcohol Level 53 MG/DL [facility] Medical Decision Making Medical Screen Exam Complete: Yes Emergency Medical Condition: Yes Medical Record Reviewed: Yes Differential Diagnosis Depression versus anxiety versus substance abuse versus electrolyte abnormality Narrative Course 52-year-old male presents to the emergency department for evaluation of depression. CBC shows no acute abnormality. BMP shows no acute abnormality, patient's hypoglycemic at 71. Alcohol level is 53. Patient will be given a meal for hypoglycemia. He is medically cleared for psychiatric screening and disposition. Mental health screening discussed with the patient. Psychiatric screen ordered. Diagnosis Primary Impression: Depression Qualified Codes: F32.9 - Major depressive disorder, single episode, unspecified Additional Impression: Substance abuse Scripts No Active Prescriptions or Reported Meds Rosalina Jeong Apr 28, 2017 16:51
[2017-04-28 21:35] VITALS: BP 157/83; PULSE 95; RESP 16; O2SAT 97
[2017-04-29 06:24] VITALS: BP 141/84; PULSE 98; RESP 16
--- NOTE | 2017-04-29 09:42 | PD ---
Physical Exam Date Seen by Provider: Apr 29, 2017 Time Seen by Provider: 09:37 Narrative 52-year-old male patient in the psychiatric emergency department that is medically and psychiatrically cleared for discharge. I was asked to disposition this patient. Data Data Last Documented VS Vital Signs Date Time Temp Pulse Resp B/P (MAP) Pulse Ox O2 Delivery O2 Flow Rate FiO2 04/29/17 06:24 98 16 141/84 (103) 04/28/17 21:35 97 Room Air 04/28/17 15:31 98.3 Orders Orders Complete Blood Count With Diff (04/28/17 15:50) Basic Metabolic Panel (Bmp) (04/28/17 15:50) Psych Screen (04/28/17 15:50) Drug Screen, Random Urine (04/28/17 15:50) Alcohol (Ethanol) (04/28/17 15:50) Diet Heart Healthy (04/28/17 Dinner) Diet Regular Basic (04/29/17 Breakfast) Labs Laboratory Tests Test 04/28/17 16:10 04/28/17 17:00 White Blood Count 9.3 TH/MM3 Red Blood Count 4.92 MIL/MM3 Hemoglobin 16.9 GM/DL Hematocrit 48.7 % Mean Corpuscular Volume 99.0 FL Mean Corpuscular Hemoglobin 34.4 PG Mean Corpuscular Hemoglobin Concent 34.8 % Red Cell Distribution Width 14.2 % Platelet Count 226 TH/MM3 Mean Platelet Volume 7.1 FL Neutrophils (%) (Auto) 44.6 % Lymphocytes (%) (Auto) 44.4 % Monocytes (%) (Auto) 7.5 % Eosinophils (%) (Auto) 2.4 % Basophils (%) (Auto) 1.1 % Neutrophils # (Auto) 4.1 TH/MM3 Lymphocytes # (Auto) 4.1 TH/MM3 Monocytes # (Auto) 0.7 TH/MM3 Eosinophils # (Auto) 0.2 TH/MM3 Basophils # (Auto) 0.1 TH/MM3 CBC Comment DIFF FINAL Differential Comment Blood Urea Nitrogen 10 MG/DL Creatinine 1.17 MG/DL Random Glucose 71 MG/DL Calcium Level 8.8 MG/DL Sodium Level 139 MEQ/L Potassium Level 4.0 MEQ/L Chloride Level 107 MEQ/L Carbon Dioxide Level 22.7 MEQ/L Anion Gap 9 MEQ/L Estimat Glomerular Filtration Rate 66 ML/MIN Ethyl Alcohol Level 53 MG/DL Urine Opiates Screen NEG Urine Barbiturates Screen NEG Urine Amphetamines Screen NEG Urine Benzodiazepines Screen NEG Urine Cocaine Screen POS Urine Cannabinoids Screen NEG MDM Medical Record Reviewed: Yes Supervised Visit with [place]OR[place]: Yes Differential Diagnosis Differential diagnosis include but not limited to depression, substance abuse, adjustment disorder Narrative Course Well-appearing well-developed 52-year-old male patient resting comfortably in the bed in the psychiatric emergency department. He denies any homicidal or suicidal ideation. Patient states he has a friends house he is planning to go to today and is going to follow up at [facility] tomorrow. The emergency department family independence case manager made him appointment for 7:30. The patient is planning on keeping it. The patient is medically and psychiatrically cleared for discharge at this time. Patient will be discharged home to his friend's house and instructions to deep his appointment at [facility] in the morning. Diagnosis Primary Impression: Depression Qualified Codes: F32.9 - Major depressive disorder, single episode, unspecified Additional Impression: Substance abuse Referrals: [facility] Patient Instructions: Depression (GEN), General Instructions Additional Instruction: Please return to emergency department if your symptoms return or worsen. Keep your appointment at [facility] tomorr at 7:30am. Avoid any illicit drugs. Scripts No Active Prescriptions or Reported Meds Disposition: 01 DISCHARGE HOME Condition: Stable Isabela Landrum Apr 29, 2017 09:42
== END 2017-04-29 11:00 | disposition home or self-care (01) ==
LOC: NEPE 15:30 → NEPJ 04-29 11:00
DX: F32.9 Major depressive disorder, single episode, unspecified (principal); F19.10 Other psychoactive substance abuse, uncomplicated; E16.2 Hypoglycemia, unspecified; F17.200 Nicotine dependence, unspecified, uncomplicated; Z86.19 Personal history of other infectious and parasitic diseases
CPT/HCPCS: 80048; 80307; 85025; 99283